=== PATIENT | female | born 1975 | race Caucasian/White ===

== ENCOUNTER 2021-05-19 10:00 | Outpatient (RCR) | payer OTHER, SELFPAY ==
--- NOTE | 2021-03-02 11:54 | PTOPEVAL ---
PHYSICAL THERAPY EVALUATION AND PLAN OF CARE 03-02-21 Thank you for referring Nancy Garcia to [facility].? She is scheduled to be seen for therapy? 2 x/week for 5 weeks. Please review, sign, date and return this plan of care NICHOLAS. I agree with and certify that the following plan of care is medically necessary. Referring Physician Date Attending Provider: Milton Caal MD *PT Outpatient Evaluation Start: 03/02/21 10:33 Freq: Status: Active Protocol: Document 03/02/21 10:30 JANET (Rec: 03/02/21 11:54 JANET [id number]) Outpatient Past Medical History Past Medical History Source of Past Medical History Patient Neurological History Hx Neurological Disorders No Significant History Cardiovascular History Hx Hypercholesterolemia Yes: meds Hx Hypertension Yes: meds Respiratory History Hx Other Respiratory Disorders Yes: seasonal allergies Gastrointestinal History Hx Cholecystectomy Yes Genitourinary History Hx Genitourinary Disorders No Significant History Musculoskeletal History Hx Orthopedic Surgery Yes: L knee arthroscopy Endocrine History Hx Hypothyroidism Yes: meds HEENT History Hx Other HEENT Disorders Yes: wear glasses Integumentary History Hx Skin Disorders No Significant History Evaluation Information Problem Diagnosis lymphedema and L arm weakness Onset September 10, 2020 Prior Level of Function Activity Level (Last 3 Months) 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 Hand Dominance Right Activity of Daily Living Ability Independent Indoor/Home Mobility Independent Community Mobility Independent Stairs Ability Independent Functional Cognition (Planning, Shopping Independent , Taking Medications) Cooking Yes Cleaning Yes Laundry Yes Shopping Yes Driving Yes Home Setting Home Type House Living Situation With Minor Child,With Spouse Comments Additional Prior Level of Function doing all home and self care Comments tasks, with decreased use of L arm; feels have 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
--- NOTE | 2021-04-07 10:59 | PTOPEVAL ---
Addendum entered by Randi Hall, PT 04/07/21 11:54: JUSTIFICATION FOR HOME INTERMITTENT COMPRESSION PUMP: Mrs. Garcia would benefit from a home intermittent compression pump to assist with managing her chronic lymphedema of head, neck and face. There is not a basic pump for head/neck and face, so the Flexitouch advanced pump by [facility] would be required. It has a trunk component, to decongest the trunk and chest and assist with movement of the lymph fluid. She has received 5 weeks of PT treatments for manual lymph drainage, manual therapy, therapeutic exercises and education. She has improved slightly, but continues to have swelling over her face and neck, with fibrotic tissue. Nancy is motivated and has been doing her self MLD and HEP. She is using a trial compression garment over her head and neck, but having issues with it being uncomfortable and her neck skin is sensative, is able to wear for about 1 & 1/2 hours at a time. Original Note: PHYSICAL THERAPY RE-EVALUATION AND UPDATED PLAN OF CARE 04-07-21 Refer to the clinical summary below for her status today, compared to the initial evaluation. She has made good progress. Continue PT treatment 2x/week for 6 weeks. Thank you for referring Nancy Garcia to [facility].? Please review, sign, date and return this updated plan of care [facility]. I agree with and certify that the following plan of care is medically necessary. 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, sensative over neck and uncomfortable (issued Tricofix to put under garment to protect skin) Pain Assessment Timing of Pain Assessment Timing of Pain Assessment Assessment Pain Scale Pain Scale Used Numeric (1 - 10) Self Report Pain Assessment Right Neck Reported Pain Level 2 Pain Description Aching Radicular Pain Location sometimes sharp, stabbing pain that last few seconds only Other Pain Description R jaw ache; sore to touch R side neck and scar Lowest Pain Intensity 1 Greatest Pain Intensity 6 Pain Score Pain Score 2: Self Report Additional Pain Score Comments bite R side of tongue, occurs when talk alot and tongue swells, hap
--- NOTE | 2021-05-19 11:55 | PTOPEVAL ---
PHYSICAL THERAPY RE-EVALUATION 05-19-21 Refer to clinical summary below, for her status today, compared to the last reeval. The goals were partially achieved. Continue PT treatment 0-1x/week for 8 weeks. Thank you for referring Nancy Garcia to [facility]. Please review, sign, date and return this updated plan of care [facility]. I agree with and certify that the following plan of care is medically necessary. Referring Physician Date Attending Provider: Milton Caal MD Document 05/19/21 10:00 JANET (Rec: 05/19/21 10:57 JANET [id number]) Assessment Status Re-evaluation Subjective Information Nancy reports: is using her Query Text:As Reported By Patient/ L arm more, but rest is the Family same--face, jaw still swollen same; still have problems with R side of tongue swelling when tired and talk more-tend to bite tongue; when have sinus problems--increase face swelling and sometimes teeth ache; also have R TMJ issues and pain; tend not to chew on her R side of the mouth-- tongue bigger and more problems moving food on R side, food gets stuck there; drink more fluids to help eating and swallowing; using home intermittent pump once day; ( discussed can use 2x/day if more swelling); do not have night compression garment yet- -when can afford; reports after cancer treatment lost 40 # and since has regained 25# of that weight; is going to start back to work, at one day /week after first of the year; wants to continue therapy. Pain Assessment Timing of Pain Assessment Timing of Pain Assessment Assessment Pain Scale Pain Scale Used Numeric (1 - 10) Self Report Pain Assessment Right Neck Reported Pain Level 2 Pain Description Aching Pain Frequency Chronic,Intermittent Other Pain Description teeth ache; face aches & sore, swollen,pressure-- all on R side; Lowest Pain Intensity 0 Greatest Pain Intensity 8 Pain Score Pain Score 2: Self Report Additional Pain Score Comments with sleeping, a
--- NOTE | 2021-05-26 09:32 | PCPTNOTE ---
This treatment is being continued on visit number [id number] Please see documentation on both accounts to view progress. Completed interventions, outcomes, and problems have been marked as Inactive to facilitate the copying of the Care plan routine for recurring accounts.
== END 2021-05-25 08:35 | disposition home or self-care (01) ==
LOC: ANHPT 10:00
DX: I89.0 Lymphedema, not elsewhere classified (principal); R29.898 Other symptoms and signs involving the musculoskeletal system
CPT/HCPCS: 97016; 97110; 97140; 97162

== ENCOUNTER 2021-09-01 11:00 | Outpatient (RCR) | payer OTHER, SELFPAY ==
--- NOTE | 2021-05-31 10:08 | PCPTNOTE ---
Pt called and cancelled due to testing positive for covid over the weekend per board of education secretary.
--- NOTE | 2021-07-12 11:26 | PTOPEVAL ---
PHYSICAL THERAPY RE-EVALUATION AND UPDATED PLAN OF CARE 07-12-21 Refer to the clinical summary below, for her status today, compared to the last reevaluation. She only had one treatment session since the last reeval due to being ill with COVID. The goals were not achieved. Continue PT treatment 2x/wk for 7 weeks. Thank you for referring Nancy Garcia to [facility].? Please review, sign, date and return this updated plan of care [facility]. I agree with and certify that the following plan of care is medically necessary. Referring Physician Date Attending Provider: Milton Caal MD Document 07/12/21 10:25 JANET (Rec: 07/12/21 11:26 JANET [id number]) Assessment Status Re-evaluation Subjective Information Nancy reports: she had Query Text:As Reported By Patient/ COVD, was very ill and did Family not leave the house for 6 weeks; still have fatigue; is still off work; swelling is worse, with more ache and numbness over chin; tongue is big and problems chewing; was able to do some of the self massage; want to continue therapy. Is using the L hand and wrist without any problems with strength, but feels tight and pulling; Pain Assessment Pain Scale Pain Scale Used Numeric (1 - 10) Self Report Pain Assessment Bilateral Jaw(s) Reported Pain Level 4 Pain Description Aching,Numbness,Soreness, Tightness Pain Frequency Chronic,Continuous Other Pain Description numbness over R chin/neck to front of neck;tightness in L forearm,neck,face Lowest Pain Intensity 2 Greatest Pain Intensity 8 Pain Score Pain Score 4: Self Report Additional Pain Score Comments issues with eating --tongue swollen more and hard to eat; have to take small bites and only chew on L side of mouth; food gets stuck on R side mouth, under tongue--was doing better with it, but since sick eating more problems;R side mouth sore and tight feeling; tends to always eat and chew on the L side of her mouth; no issues with coughing , choking, but does bite the R side of
--- NOTE | 2021-08-02 09:25 | PCPTNOTE ---
pt called and canceled today's appt due to her child being ill;
--- NOTE | 2021-08-19 11:11 | PCPTNOTE ---
pt called and canceled today's appt due to her daughter being ill;
--- NOTE | 2021-08-23 08:12 | PCPTNOTE ---
pt called and canceled today's appt;
--- NOTE | 2021-09-01 11:56 | PTOPEVAL ---
PHYSICAL THERAPY DISCHARGE REPORT 09-01-21 Refer to the clinical summary below for her status today, compared to the last reeval. She will be discharged from PT at this time. The goals were partially achieved. Thank you for referring Nancy Garcia to [facility]. Please review, sign, date and return this Discharge Report NICHOLAS. I agree with and certify that the following plan of care is medically necessary. Referring Physician Date Attending Provider: Milton Caal MD Subjective Information Nancy reports: feel R lower Query Text:As Reported By Patient/ pouch on jaw is less, not Family having as much swelling there and can turn my head to the R better; otherwise, about the same; with eating, still put food on the L side of her mouth, still tend to bite tongue on R side of mouth and food gets caught under the R side of her tounge and she cannot move it out--has to put her finger in to move it; swallowing is OK; still have a lisp when talking from the tongue being bigger; is managing swelling by using the home intermittent compression pump once/day; has returned her compression garment for the smaller size-- awaiting for it to be mailed to her; doing self massage; sleeping on 2 pillows; (educated and discussed with pt--using home pump 2x/day and getting wedge for better position of neck/shoulders with sleeping) follow up with surgeon next week- feel like need to have tongue trimmed; feels like she is starting to get some strength back, after covid, she was so tired and fatigued so quickly was not able to do much, now starting to do more around the house. Pain Assessment Pain Scale Pain Scale Used Numeric (1 - 10) Self Report Pain Assessment Bilateral Jaw(s) Reported Pain Level 1 Pain Description Aching Pain Frequency Chronic,Continuou
== END 2021-09-01 16:12 | disposition home or self-care (01) ==
LOC: ANHPT 11:00
DX: I89.0 Lymphedema, not elsewhere classified (principal); R29.898 Other symptoms and signs involving the musculoskeletal system
CPT/HCPCS: 97110; 97140